=== PATIENT | male | born 2000 | race Caucasian/White ===

== ENCOUNTER 2021-06-11 12:32 | Emergency (ER) | payer OTHER ==
[~2021-06-11] VITALS: Ht 165.1 cm; Wt 63.2 kg
--- NOTE | 2021-06-11 12:41 | NUR ---
PT AMBULATED TO BED 3
[2021-06-11 12:45] VITALS: BP 120/94
--- NOTE | 2021-06-11 13:01 | NUR ---
er at bedside. pt bib self c/o anxiety x 1 week off and on x 1-2 months. PT DENIES N/V/D; SKIN IS INTACT, PINK/WARM/DRY; AAOX4, PERRL, WITH EVEN AND STEADY GAIT; LUNGS CLEAR BL, BREATHING UNLABORED; HR EVEN AND REGULAR, BL PERIPHERAL PULSES PRESENT; BS ACTIVE X4, NO TENDERNESS TO PALPATION, PT DENIES ANY FEVER, CP, SOB, OR COUGH AT THIS TIME; PT STATES 0/10 PAIN AT THIS TIME; VSS; PATIENT POSITIONED FOR COMFORT; HOB ELEVATED; BEDRAILS UP X2; BED DOWN.
[2021-06-11] MEDS ORDERED: ATA25 PO (13:05)
[2021-06-11] MEDS ORDERED: PSEU120T22 PO (13:05)
[2021-06-11 13:32] VITALS: BP 120/94
--- NOTE | 2021-06-11 13:33 | NUR ---
Patient discharged with v/s stable. Written and verbal after care instructions given and explained. Patient alert, oriented and verbalized understanding of instructions. Ambulatory with steady gait. All questions addressed prior to discharge. ID band removed. Patient advised to follow up with PMD. Rx of sudafed and atarax given. Patient educated on indication of medication including possible reaction and side effects. Opportunity to ask questions provided and answered. Provided pt with mental health resource packet as well
== END 2021-06-11 13:33 | disposition home or self-care (01) ==
LOC: MED 12:32
DX: F41.9 Anxiety disorder, unspecified (principal); J01.90 Acute sinusitis, unspecified
CPT/HCPCS: 99283